=== PATIENT | male | born 1940 | race Caucasian/White ===

== ENCOUNTER 2024-09-15 16:37 | Inpatient (IN) | payer MEDICARE ==
[~2024-09-15] VITALS: Ht 175.3 cm; Wt 104.3 kg
[2024-09-15] VITALS (9 sets, daily range): BP systolic 83–135; BP diastolic 51–66; O2SAT 100
[2024-09-15] MEDS ORDERED: ONDANSETRON HCL/PF 4 MG/2 ML VIAL ONE (17:09)
[2024-09-15] MEDS: IV NS 0.9% 1,000 ML BAG IV ONE ×3 (17:17→19:47)
[2024-09-15] MEDS: ONDANSETRON HCL/PF 4 MG/2 ML VIAL IVP ONE (17:21)
[2024-09-15] MEDS: PANTOPRAZOLE 80 MG in IV NS 0.9% 100 ML IV ONE (17:32)
[2024-09-15 17:38] LABS: INR 1.76 (0.91-1.10); PARTIAL THROMBOPLASTIN TIME 36.8 SEC (24.3-34.3)
[2024-09-15 17:46] LABS: ALANINE AMINOTRANSFERASE 15 U/L (12-78); ALKALINE PHOSPHATASE 74 U/L (46-116); ASPARTATE AMINOTRANSFERASE 36 U/L (15-37); BILIRUBIN,DIRECT 0.3 mg/dL (0.0-0.2); BILIRUBIN,TOTAL 0.9 mg/dL (0.2-1.0); CREATININE 2.7 mg/dL (0.6-1.3); GLUCOSE 206 mg/dL (74-106); LIPASE 52 U/L (16-77); TOTAL PROTEIN, SERUM 6.9 g/dL (6.4-8.2); UREA NITROGEN, BLOOD 61 mg/dL (7-18)
[2024-09-15 17:55] LABS: ALBUMIN 1.5 g/dL (3.4-5.0); CARBON DIOXIDE 18 mmol/L (21-32); CHLORIDE 103 mmol/L (98-107); POTASSIUM 6.1 mmol/L (3.5-5.1); SODIUM SERUM 139 mmol/L (136-145)
[2024-09-15] MEDS: PANTOPRAZOLE 80 MG in IV NS 0.9% 500 ML IV ONE (18:23)
[2024-09-15 18:29] LABS: BASOPHILS # (AUTO) 0.1 K/uL (0.0-0.2); BASOPHILS % (AUTO) 0.4 % (0.0-2.0); EOSINOPHILS % (AUTO) 0.1 % (0.0-6.0); HEMATOCRIT 27 % (39-51); HEMOGLOBIN 8.1 g/dL (13.5-17.5); LYMPHOCYTES # (AUTO) 1.2 K/uL (0.8-4.8); LYMPHOCYTES % (AUTO) 6.3 % (20.0-44.0); MEAN CORPUSCULAR HEMOGLOBIN 25 PG (26.0-33.0); MEAN CORPUSCULAR HGB CONC 30 g/dl (31.0-36.0); MEAN CORPUSCULAR VOLUME 84 fL (80-96); MONOCYTES # (AUTO) 1.3 K/uL (0.1-1.30); MONOCYTES % (AUTO) 6.5 % (2.0-12.0); NEUTROPHILS # (AUTO) 16.8 K/uL (1.8-8.9); NEUTROPHILS % (AUTO) 86.7 % (43.0-81.0); PLATELET COUNT (AUTO) 323 K/uL (150-450); RED BLOOD CELL COUNT(AUTO) 3.25 MIL/uL (4.5-6.0); RED CELL DISTRIBUTION WIDTH 20.1 % (11.5-15.0); WHITE BLOOD COUNT (AUTO) 19.4 K/uL (4.3-11.0)
[2024-09-15] MEDS ORDERED: SODIUM BICARBONATE SYR 100 MEQ in IV D5W 1,000 ML IV ONE (19:00)
[2024-09-15] MEDS ORDERED: Sodium Bicarbonate 100 MEQ in IV D5W 1,000 ML IV PRN (19:00)
[2024-09-15] MEDS ORDERED: ALBUMIN 25% 100 ML IV ONE (19:00)
[2024-09-15] MEDS ORDERED: INSULIN REGULAR, HUMAN 100 UNIT/ML 10 ML VIAL ONE (19:01)
[2024-09-15] MEDS: ALBUMIN 25% 12.5 GM/50 ML BOTTLE IV ONE (19:16)
[2024-09-15] MEDS: INSULIN REGULAR, HUMAN 100 UNIT/ML 10 ML VIAL IV ONE (19:19)
[2024-09-15] MEDS: Sodium Bicarbonate 100 MEQ in IV D5W 1,000 ML IV ONE (19:50)
[2024-09-15] MEDS ORDERED: MORPHINE SULFATE INJ 2 MG/ML DISP.SYRIN IV PRN (20:00)
[2024-09-15] MEDS ORDERED: ACETAMINOPHEN 325 MG TABLET PO PRN (20:00)
[2024-09-15] MEDS ORDERED: hydrALAZINE HCL IV 20 MG VIAL IV PRN (20:00)
[2024-09-15] MEDS ORDERED: ONDANSETRON HCL/PF 4 MG/2 ML VIAL IVP PRN (20:00)
[2024-09-15 20:07] LABS: CALCIUM, SERUM 10.4 mg/dL (8.5-10.1); CREATININE 2.7 mg/dL (0.6-1.3); POTASSIUM 4.9 mmol/L (3.5-5.1)
[2024-09-15 20:10] LABS: HEMOGLOBIN 8.4 g/dL (13.5-17.5)
[2024-09-15 20:12] LABS: ALBUMIN 1.9 g/dL (3.4-5.0); BILIRUBIN,TOTAL 1.1 mg/dL (0.2-1.0); TOTAL PROTEIN, SERUM 6.5 g/dL (6.4-8.2)
[2024-09-15 20:47] LABS: LYMPHOCYTES % (MANUAL) 8 % (16-48); MONOCYTES % (MANUAL) 8 % (0-11.0); NEUTROPHILS % (MANUAL) 84 (42-76); PLATELET ESTIMATE ADEQUATE
[2024-09-15 20:50] LABS: ANISOCYTOSIS 1+
[2024-09-15] MEDS: CEFEPIME 2 GM in IV D5W 100 ML IV SCH (21:05)
[2024-09-15] MEDS: IV NS 0.9% 250 ML IV PRN (21:06)
[2024-09-15] MEDS: VANCOMYCIN 1 GM in IV D5W 250ml IV ONE ×2 (21:43→23:05)
[2024-09-15 22:12] LABS: ABG BASE EXCESS -6.9 mmol/L (-2.0-3.0); ABG PCO2 39.1 mmHg (35.0-48.0); ABG PH 7.302 (7.350-7.450); ABG TOTAL HEMOGLOBIN 7.6 G/dL (13.5-17.5); COHb 0.3 % (0.5-1.5); MetHb 0.4 % (0.0-1.5); O2Hb 99.3 % (94.0-97.0); SITE, ABG LEFT RADIAL
[2024-09-15] MEDS ORDERED: ALBUTEROL FS 2.5 MG/0.5 ML VIAL.NEB NEB PRN (22:30)
[2024-09-15] MEDS: BLOOD SUGAR DIAGNOSTIC 1 EACH STRIP VI SCH (22:33)
[2024-09-15] MEDS: ALBUMIN 25% 100 ML IV ONE (22:36)
[2024-09-15] MEDS: ALBUMIN 25% 25 GM in PREMIX 1 EA IV SCH (22:38)
[2024-09-15] MEDS: IPRATROPIUM/ALBUTEROL INHALER IH SCH (23:57)
[2024-09-16] VITALS (106 sets, daily range): BP systolic 80–157; BP diastolic 39–145; TEMP 96.8–97.7; O2SAT 83–100
[2024-09-16] MEDS: NOREPINEPHRINE 8MG/250ML RTU 250 ML IV ONE (00:12)
[2024-09-16] MEDS: FUROSEMIDE 20 MG/2 ML VIAL IV SCH (00:43)
[2024-09-16] MEDS: NOREPINEPHRINE 8 MG in IV D5W 242 ML IV PRN (01:09)
[2024-09-16 01:52] LABS: LACTIC ACID 7.2 mmol/L (0.4-2.0)
[2024-09-16 02:27] LABS: ABG BASE EXCESS -4.4 mmol/L (-2.0-3.0); ABG OXYGEN SATURATION 98.5 % (94.0-98.0); ABG PCO2 44.7 mmHg (35.0-48.0); ABG PH 7.303 (7.350-7.450); ABG PO2 125.5 mmHg (83.0-108.0); ABG TOTAL HEMOGLOBIN 7.5 G/dL (13.5-17.5); COHb 0.7 % (0.5-1.5); MetHb 0.2 % (0.0-1.5); O2Hb 97.6 % (94.0-97.0); SITE, ABG LEFT RADIAL
[2024-09-16 04:38] LABS: BASOPHILS % (AUTO) 0.1 % (0.0-2.0); HEMATOCRIT 22 % (39-51); LYMPHOCYTES # (AUTO) 3.1 K/uL (0.8-4.8); LYMPHOCYTES % (AUTO) 13.1 % (20.0-44.0); MEAN CORPUSCULAR HEMOGLOBIN 25 PG (26.0-33.0); MEAN CORPUSCULAR HGB CONC 31 g/dl (31.0-36.0); MEAN CORPUSCULAR VOLUME 82 fL (80-96); MONOCYTES # (AUTO) 1.2 K/uL (0.1-1.30); MONOCYTES % (AUTO) 4.8 % (2.0-12.0); NEUTROPHILS # (AUTO) 19.5 K/uL (1.8-8.9); PLATELET COUNT (AUTO) 303 K/uL (150-450); RED CELL DISTRIBUTION WIDTH 19.4 % (11.5-15.0); WHITE BLOOD COUNT (AUTO) 23.9 K/uL (4.3-11.0)
[2024-09-16 04:45] LABS: ALBUMIN 2.2 g/dL (3.4-5.0); BILIRUBIN,TOTAL 1.1 mg/dL (0.2-1.0); CALCIUM, SERUM 9.4 mg/dL (8.5-10.1); CREATININE 2.5 mg/dL (0.6-1.3); MAGNESIUM 1.3 mg/dL (1.8-2.4); POTASSIUM 4.3 mmol/L (3.5-5.1); TOTAL PROTEIN, SERUM 5.9 g/dL (6.4-8.2)
[2024-09-16 05:42] LABS: HEMOGLOBIN 6.9 g/dL (13.5-17.5)
[2024-09-16 06:47] LABS: ANISOCYTOSIS 2+; LYMPHOCYTES % (MANUAL) 18 % (16-48); MONOCYTES % (MANUAL) 3 % (0-11.0); NEUTROPHILS % (MANUAL) 79 (42-76); PLATELET ESTIMATE ADEQUATE
[2024-09-16] MEDS ORDERED: ALBUTEROL FS 2.5 MG/3 ML VIAL.NEB NEB SCH (07:35)
[2024-09-16] MEDS: PANTOPRAZOLE 40 MG VIAL IV SCH (08:13)
[2024-09-16 08:48] LABS: APPEARANCE,URINE CLEAR (CLEAR); BILIRUBIN,URINE NEGATIVE (NEGATIVE); BLOOD, URINE 3+ Ery/uL (NEGATIVE); COLOR,URINE YELLOW (YELLOW); KETONES,URINE NEGATIVE (NEGATIVE); LEUKOCYTE ESTERASE ,URINE 2+ (NEGATIVE); NITRITE, URINE POSITIVE (NEGATIVE); PH,URINE 6.5 (5.0-8.0); PROTEIN,URINE 2+ mg/dl (NEGATIVE); UGLUCOSE NEGATIVE (NEGATIVE); UROBILINOGEN,URINE 0.2 EU/dL (0.2)
[2024-09-16] MEDS: INSULIN REGULAR, HUMAN 100 UNIT/ML 3 ML VIAL SQ PRN (09:33)
[2024-09-16 10:03] LABS: ADD URINE CULTURE YES; BACTERIA,URINE Many /HPF (None Seen); SQUAMOUS EPITHELIAL CELL,UR Moderate /HPF (None Seen); WBC,URINE 81-100 /HPF (0-3)
[2024-09-16] MEDS: Magnesium 1GM/D5W 100ML PREMIX 100 ML IV SCH (10:55)
[2024-09-16] MEDS: THERAHONEY GEL 1.5 OZ TUBE TP SCH (10:55)
[2024-09-16 12:37] LABS: THYROID STIMULATING HORMONE 2.02 uIU/mL (0.358-3.74)
[2024-09-16 12:56] LABS: HEMOGLOBIN 8.5 g/dL (13.5-17.5)
[2024-09-16 13:13] LABS: CREATININE, URINE 17.7 MG/DL (30.0-125.0); URINE TOTAL PROTEIN 66.4 mg/dL (0-11.9)
[2024-09-16] MEDS ORDERED: PANT40TA49 PO (14:06)
[2024-09-16] MEDS ORDERED: METO25TA4 PO (14:06)
[2024-09-16] MEDS ORDERED: APIX5TAB PO (14:07)
[2024-09-16] MEDS ORDERED: METF-440 PO (14:07)
[2024-09-16] MEDS ORDERED: BUME1TAB8 PO (14:07)
[2024-09-16] MEDS ORDERED: ATOR20TA PO (14:07)
[2024-09-16] MEDS ORDERED: AMLO-213 PO (14:07)
[2024-09-16] MEDS: ALBUTEROL FS 2.5 MG/3 ML VIAL.NEB NEB SCH (14:28)
[2024-09-16 14:30] LABS: ABG BASE EXCESS 1.3 mmol/L (-2.0-3.0); ABG OXYGEN SATURATION 99.1 % (94.0-98.0); ABG PCO2 51.6 mmHg (35.0-48.0); ABG PH 7.343 (7.350-7.450); ABG PO2 155.5 mmHg (83.0-108.0); ABG TOTAL HEMOGLOBIN 8.4 G/dL (13.5-17.5); COHb 0.6 % (0.5-1.5); MetHb 0.4 % (0.0-1.5); O2Hb 98.1 % (94.0-97.0); SITE, ABG LEFT RADIAL
[2024-09-16] MEDS: IPRATROPIUM NEB FS 0.5 MG/2.5 ML AMPUL.NEB NEB SCH (14:30)
[2024-09-16] MEDS ORDERED: CRAN425C6 PO (15:43)
[2024-09-16] MEDS ORDERED: ACET-73 PO (15:43)
[2024-09-16] MEDS ORDERED: DIPH25CA83 PO (15:43)
[2024-09-16] MEDS ORDERED: ASPI-1169 PO (15:43)
[2024-09-16] MEDS ORDERED: DOCU-141 PO (15:43)
[2024-09-16] MEDS ORDERED: POLY17PO4 PO (15:43)
[2024-09-16] MEDS: CLOTRIMAZOLE/BETAMETASONE DIPROPIONATE 15 GM TUBE TP SCH (20:33)
[2024-09-16] MEDS: *INSULIN REGULAR(HUMULIN R)HUM 100 UNIT/ML VIAL SQ PRN (21:39)
[2024-09-17] VITALS (74 sets, daily range): BP systolic 75–147; BP diastolic 37–130; TEMP 96.8–97.2; O2SAT 95–100
[2024-09-17 05:05] LABS: BASOPHILS % (AUTO) 0.2 % (0.0-2.0); EOSINOPHILS # (AUTO) 0.1 K/uL (0.0-0.7); EOSINOPHILS % (AUTO) 1.3 % (0.0-6.0); HEMATOCRIT 23 % (39-51); HEMOGLOBIN 7.6 g/dL (13.5-17.5); LYMPHOCYTES # (AUTO) 1.8 K/uL (0.8-4.8); LYMPHOCYTES % (AUTO) 19.8 % (20.0-44.0); MEAN CORPUSCULAR HEMOGLOBIN 27 PG (26.0-33.0); MEAN CORPUSCULAR HGB CONC 33 g/dl (31.0-36.0); MEAN CORPUSCULAR VOLUME 83 fL (80-96); MONOCYTES # (AUTO) 0.9 K/uL (0.1-1.30); MONOCYTES % (AUTO) 9.7 % (2.0-12.0); NEUTROPHILS # (AUTO) 6.4 K/uL (1.8-8.9); PLATELET COUNT (AUTO) 257 K/uL (150-450); RED BLOOD CELL COUNT(AUTO) 2.82 MIL/uL (4.5-6.0); RED CELL DISTRIBUTION WIDTH 19.4 % (11.5-15.0); WHITE BLOOD COUNT (AUTO) 9.3 K/uL (4.3-11.0)
[2024-09-17 05:21] LABS: ALBUMIN 2.3 g/dL (3.4-5.0); BILIRUBIN,TOTAL 0.8 mg/dL (0.2-1.0); CALCIUM, SERUM 10.2 mg/dL (8.5-10.1); CREATININE 2.2 mg/dL (0.6-1.3); MAGNESIUM 1.9 mg/dL (1.8-2.4); PHOSPHORUS 3.8 mg/dL (2.5-4.9); POTASSIUM 3.6 mmol/L (3.5-5.1); TOTAL PROTEIN, SERUM 5.9 g/dL (6.4-8.2)
[2024-09-17] MEDS: VITAMINS A AND D 56.7 GM TUBE TP SCH (08:10)
[2024-09-17] MEDS: IV D5 LR 1,000 ML IV PRN (08:58)
[2024-09-17] MEDS: VANCOMYCIN 1 GM in IV D5W 250ml IV SCH (12:38)
[2024-09-17 12:39] LABS: HEMOGLOBIN 7.8 g/dL (13.5-17.5)
[2024-09-17 20:27] LABS: HEMOGLOBIN 7.7 g/dL (13.5-17.5)
[2024-09-18] VITALS (34 sets, daily range): BP systolic 92–159; BP diastolic 22–139; TEMP 97.5–97.9; O2SAT 95–100
[2024-09-18 04:32] LABS: HEMOGLOBIN 7.3 g/dL (13.5-17.5)
[2024-09-18 04:49] LABS: CALCIUM, SERUM 9.7 mg/dL (8.5-10.1); CREATININE 1.8 mg/dL (0.6-1.3); POTASSIUM 3.5 mmol/L (3.5-5.1)
[2024-09-18] MEDS: CEFEPIME 2 GM in IV D5W 100 ML IV SCH (07:40)
[2024-09-18 08:10] LABS: PTH, INTACT 43 pg/mL (15-65)
[2024-09-18 08:10] LABS: FOLIC ACID 5.8 ng/mL (>3.0)
[2024-09-18] MEDS ORDERED: AMLODIPINE BESYLATE 10 MG TABLET PO SCH (09:00)
[2024-09-18 13:28] LABS: HEMOGLOBIN 8.4 g/dL (13.5-17.5)
[2024-09-18 14:23] LABS: HIV-1 p24 ANTIGEN NON REACTIVE (NONREACTIVE); HIV-1/2 ANTIBODY NON REACTIVE (NONREACTIVE)
[2024-09-18 20:08] LABS: HEMOGLOBIN 8.7 g/dL (13.5-17.5)
[2024-09-19] VITALS (14 sets, daily range): BP systolic 96–138; BP diastolic 67–95; TEMP 97–97.5; O2SAT 93–100
[2024-09-19 03:45] LABS: HEMOGLOBIN 8.8 g/dL (13.5-17.5)
[2024-09-19 04:01] LABS: CALCIUM, SERUM 9.9 mg/dL (8.5-10.1); CREATININE 1.9 mg/dL (0.6-1.3); POTASSIUM 2.9 mmol/L (3.5-5.1)
[2024-09-19 04:09] LABS: HEPATITIS B CORE AB, TOTAL Positive (Negative); HEPATITIS B SURFACE AB (QUAL) Reactive (.)
[2024-09-19] MEDS: POTASSIUM CL. PREMIX PERIPHER. 50 ML IV SCH (09:15)
[2024-09-19 12:38] LABS: HEMOGLOBIN 8.7 g/dL (13.5-17.5)
[2024-09-19 21:43] LABS: HEMOGLOBIN 9.2 g/dL (13.5-17.5)
[2024-09-20] VITALS (12 sets, daily range): BP systolic 105–122; BP diastolic 68–89; TEMP 96.8–97.7; O2SAT 95–100
[2024-09-20 07:50] LABS: CALCIUM, SERUM 9.9 mg/dL (8.5-10.1); CREATININE 1.7 mg/dL (0.6-1.3); POTASSIUM 3.2 mmol/L (3.5-5.1)
[2024-09-20] MEDS: POTASSIUM CL. PREMIX PERIPHER. 50 ML IV SCH (10:06)
[2024-09-20] MEDS: DEXTROSE 50%-WATER 50 ML DISP.SYRIN IV PRN (10:43)
[2024-09-20] MEDS ORDERED: VANCOMYCIN HCL 1.25 GM in IV D5W 250 ML IV SCH (11:00)
[2024-09-20] MEDS: VANCOMYCIN 1 GM in IV D5W 250ml IV SCH (22:57)
[2024-09-21] VITALS (12 sets, daily range): BP systolic 98–139; BP diastolic 51–73; TEMP 97.3–98.1; O2SAT 97–100
[2024-09-21 07:31] LABS: CALCIUM, SERUM 9.9 mg/dL (8.5-10.1); CREATININE 1.7 mg/dL (0.6-1.3); POTASSIUM 4.2 mmol/L (3.5-5.1)
[2024-09-21] MEDS: FINASTERIDE (5 MG) 5 MG TABLET PO SCH (08:42)
[2024-09-21 15:06] LABS: VITAMIN B1 THIAMINE,WB 79.1 nmol/L (66.5-200.0)
[2024-09-21] MEDS: APIXABAN 5 MG TABLET PO SCH (16:47)
[2024-09-21] MEDS: TAMSULOSIN 0.4 MG CAP.SR.24H PO SCH (21:17)
[2024-09-22] VITALS (9 sets, daily range): BP systolic 96–102; BP diastolic 55–77; TEMP 97.3–98.1; O2SAT 97–100
[2024-09-22 06:43] LABS: BASOPHILS # (AUTO) 0.1 K/uL (0.0-0.2); BASOPHILS % (AUTO) 0.7 % (0.0-2.0); EOSINOPHILS # (AUTO) 0.2 K/uL (0.0-0.7); EOSINOPHILS % (AUTO) 2.8 % (0.0-6.0); HEMATOCRIT 25 % (39-51); HEMOGLOBIN 8.1 g/dL (13.5-17.5); LYMPHOCYTES # (AUTO) 2.3 K/uL (0.8-4.8); LYMPHOCYTES % (AUTO) 27.2 % (20.0-44.0); MEAN CORPUSCULAR HEMOGLOBIN 27 PG (26.0-33.0); MEAN CORPUSCULAR HGB CONC 32 g/dl (31.0-36.0); MEAN CORPUSCULAR VOLUME 86 fL (80-96); MONOCYTES # (AUTO) 0.8 K/uL (0.1-1.30); MONOCYTES % (AUTO) 9.1 % (2.0-12.0); NEUTROPHILS # (AUTO) 5.1 K/uL (1.8-8.9); NEUTROPHILS % (AUTO) 60.2 % (43.0-81.0); PLATELET COUNT (AUTO) 241 K/uL (150-450); RED BLOOD CELL COUNT(AUTO) 2.97 MIL/uL (4.5-6.0); RED CELL DISTRIBUTION WIDTH 21.8 % (11.5-15.0); WHITE BLOOD COUNT (AUTO) 8.5 K/uL (4.3-11.0)
[2024-09-22 06:46] LABS: ALBUMIN 1.5 g/dL (3.4-5.0); BILIRUBIN,TOTAL 0.8 mg/dL (0.2-1.0); CALCIUM, SERUM 9.9 mg/dL (8.5-10.1); CREATININE 1.7 mg/dL (0.6-1.3); MAGNESIUM 1.5 mg/dL (1.8-2.4); PHOSPHORUS 1.7 mg/dL (2.5-4.9); POTASSIUM 3.9 mmol/L (3.5-5.1); TOTAL PROTEIN, SERUM 5.4 g/dL (6.4-8.2)
[2024-09-22] MEDS: PANTOPRAZOLE 40 MG TABLET.DR PO SCH (10:23)
[2024-09-22] MEDS: K PHOS NEUTRAL 250 MG TABLET PO ONE (17:36)
[2024-09-22] MEDS: CEFAZOLIN 1 GM in IV D5W 50 ML IV SCH (21:09)
[2024-09-22] MEDS: MAGNESIUM OXIDE 400 MG TABLET PO ONE (21:10)
[2024-09-23] VITALS (12 sets, daily range): BP systolic 92–104; BP diastolic 55–84; TEMP 97.3–98.9; O2SAT 94–100
[2024-09-23 06:52] LABS: CALCIUM, SERUM 10.2 mg/dL (8.5-10.1); CREATININE 1.6 mg/dL (0.6-1.3); MAGNESIUM 1.7 mg/dL (1.8-2.4); PHOSPHORUS 1.9 mg/dL (2.5-4.9); POTASSIUM 3.5 mmol/L (3.5-5.1)
[2024-09-23] MEDS: Magnesium 1GM/D5W 100ML PREMIX 100 ML IV SCH (10:42)
[2024-09-23] MEDS: NEUTRA PHOS 1 POWD.PACKET PO SCH (11:06)
[2024-09-23 19:41] LABS: ABG OXYGEN SATURATION 98.2 % (94.0-98.0); ABG PCO2 39.8 mmHg (35.0-48.0); ABG PH 7.394 (7.350-7.450); ABG PO2 123.6 mmHg (83.0-108.0); ABG TOTAL HEMOGLOBIN 8.6 G/dL (13.5-17.5); COHb 0.1 % (0.5-1.5); MetHb 0.3 % (0.0-1.5); O2Hb 97.8 % (94.0-97.0); SITE, ABG RIGHT RADIAL
[2024-09-24] VITALS (12 sets, daily range): BP systolic 125–151; BP diastolic 63–106; TEMP 97.2–98.8; O2SAT 6–100
[2024-09-24 07:19] LABS: BASOPHILS # (AUTO) 0.1 K/uL (0.0-0.2); BASOPHILS % (AUTO) 0.8 % (0.0-2.0); EOSINOPHILS # (AUTO) 0.2 K/uL (0.0-0.7); EOSINOPHILS % (AUTO) 1.9 % (0.0-6.0); HEMATOCRIT 28 % (39-51); HEMOGLOBIN 8.8 g/dL (13.5-17.5); LYMPHOCYTES # (AUTO) 1.9 K/uL (0.8-4.8); LYMPHOCYTES % (AUTO) 21.9 % (20.0-44.0); MEAN CORPUSCULAR HEMOGLOBIN 27 PG (26.0-33.0); MEAN CORPUSCULAR HGB CONC 32 g/dl (31.0-36.0); MEAN CORPUSCULAR VOLUME 87 fL (80-96); MONOCYTES # (AUTO) 0.8 K/uL (0.1-1.30); MONOCYTES % (AUTO) 9.1 % (2.0-12.0); NEUTROPHILS # (AUTO) 5.7 K/uL (1.8-8.9); NEUTROPHILS % (AUTO) 66.3 % (43.0-81.0); PLATELET COUNT (AUTO) 251 K/uL (150-450); RED BLOOD CELL COUNT(AUTO) 3.21 MIL/uL (4.5-6.0); RED CELL DISTRIBUTION WIDTH 22.1 % (11.5-15.0); WHITE BLOOD COUNT (AUTO) 8.5 K/uL (4.3-11.0)
[2024-09-24 07:51] LABS: ALBUMIN 1.6 g/dL (3.4-5.0); BILIRUBIN,TOTAL 0.5 mg/dL (0.2-1.0); CALCIUM, SERUM 10.5 mg/dL (8.5-10.1); CREATININE 1.9 mg/dL (0.6-1.3); MAGNESIUM 1.7 mg/dL (1.8-2.4); PHOSPHORUS 2.5 mg/dL (2.5-4.9); POTASSIUM 3.5 mmol/L (3.5-5.1); TOTAL PROTEIN, SERUM 5.9 g/dL (6.4-8.2)
[2024-09-24] MEDS: Magnesium 1GM/D5W 100ML PREMIX 100 ML IV SCH (10:59)
[2024-09-24] MEDS ORDERED: INSULIN REGULAR, HUMAN 100 UNIT/ML 3 ML VIAL SQ PRN (16:30)
[2024-09-24] MEDS ORDERED: DEXTROSE 50%-WATER 50 ML DISP.SYRIN IV PRN ×2 (16:30→17:00)
[2024-09-24] MEDS: BLOOD SUGAR DIAGNOSTIC 1 EACH STRIP IN SCH (17:08)
[2024-09-24] MEDS ORDERED: BLOOD SUGAR DIAGNOSTIC 1 EACH STRIP IN SCH (18:00)
[2024-09-25] VITALS (8 sets, daily range): BP systolic 92–119; BP diastolic 61–78; TEMP 97.6–97.9; O2SAT 94–100
[2024-09-25] MEDS: INSULIN REGULAR, HUMAN 100 UNIT/ML 3 ML VIAL SQ PRN (00:03)
[2024-09-25] MEDS: IV D5/ 0.9% NACL 1,000 ML IV PRN (05:20)
[2024-09-25 06:56] LABS: BASOPHILS % (AUTO) 0.6 % (0.0-2.0); EOSINOPHILS # (AUTO) 0.1 K/uL (0.0-0.7); EOSINOPHILS % (AUTO) 1.3 % (0.0-6.0); HEMATOCRIT 23 % (39-51); HEMOGLOBIN 7.2 g/dL (13.5-17.5); LYMPHOCYTES # (AUTO) 1.7 K/uL (0.8-4.8); LYMPHOCYTES % (AUTO) 23.7 % (20.0-44.0); MEAN CORPUSCULAR HEMOGLOBIN 27 PG (26.0-33.0); MEAN CORPUSCULAR HGB CONC 32 g/dl (31.0-36.0); MEAN CORPUSCULAR VOLUME 87 fL (80-96); MONOCYTES # (AUTO) 0.8 K/uL (0.1-1.30); MONOCYTES % (AUTO) 10.7 % (2.0-12.0); NEUTROPHILS # (AUTO) 4.6 K/uL (1.8-8.9); NEUTROPHILS % (AUTO) 63.7 % (43.0-81.0); PLATELET COUNT (AUTO) 234 K/uL (150-450); RED BLOOD CELL COUNT(AUTO) 2.64 MIL/uL (4.5-6.0); RED CELL DISTRIBUTION WIDTH 22.9 % (11.5-15.0); WHITE BLOOD COUNT (AUTO) 7.3 K/uL (4.3-11.0)
[2024-09-25 07:30] LABS: ALKALINE PHOSPHATASE 79 U/L (46-116); ASPARTATE AMINOTRANSFERASE 15 U/L (15-37); BILIRUBIN,TOTAL 0.4 mg/dL (0.2-1.0); CALCIUM, SERUM 9.9 mg/dL (8.5-10.1); CARBON DIOXIDE 26 mmol/L (21-32); CHLORIDE 115 mmol/L (98-107); CREATININE 1.8 mg/dL (0.6-1.3); GLUCOSE 153 mg/dL (74-106); MAGNESIUM 1.6 mg/dL (1.8-2.4); PHOSPHORUS 2.7 mg/dL (2.5-4.9); POTASSIUM 3.4 mmol/L (3.5-5.1); SODIUM SERUM 147 mmol/L (136-145); UREA NITROGEN, BLOOD 28 mg/dL (7-18)
[2024-09-25 08:37] LABS: ALANINE AMINOTRANSFERASE 10 U/L (12-78)
[2024-09-25 09:20] LABS: ALBUMIN 1.4 g/dL (3.4-5.0)
[2024-09-25] MEDS: GLUCERNA 1.2 1,000 ML BOTTLE GT PRN (11:01)
[2024-09-26 07:08] LABS: *SPE A/G RATIO 0.8 (0.7-1.7); *SPE ALBUMIN 2.4 g/dL (2.9-4.4); *SPE ALPHA-1-GLOBULIN 0.4 g/dL (0.0-0.4); *SPE ALPHA-2-GLOBULIN 0.4 g/dL (0.4-1.0); *SPE BETA GLOBULIN 0.7 g/dL (0.7-1.3); *SPE GLOBULIN, TOTAL 2.9 g/dL (2.2-3.9); *SPE M-SPIKE Not Observed g/dL (Not Observed); *SPE PROTEIN TOTAL 5.3 g/dL (6.0-8.5); *SPEGAMMA GLOBULIN 1.4 g/dL (0.4-1.8)
== END 2024-09-25 18:13 | DRG 871 ==
LOC: ER 16:41 → ICU 19:53 → TELE1 09-18 17:53 → MEDSG1 09-19 13:13
PROVIDERS: ADMIT Internal Medicine
PROC: 30233N1 Transfusion of Nonautologous Red Blood Cells into Peripheral Vein, Percutaneous Approach (ICD-10-PCS; principal; 2024-09-15)
PROC: 0DH63UZ Insertion of Feeding Device into Stomach, Percutaneous Approach (ICD-10-PCS; 2024-09-24)
DX: A41.9 Sepsis, unspecified organism (principal); E43 Unspecified severe protein-calorie malnutrition; L89.514 Pressure ulcer of right ankle, stage 4; L89.153 Pressure ulcer of sacral region, stage 3; J96.01 Acute respiratory failure with hypoxia; N17.0 Acute kidney failure with tubular necrosis; R65.21 Severe sepsis with septic shock; J69.0 Pneumonitis due to inhalation of food and vomit; G93.41 Metabolic encephalopathy; K92.2 Gastrointestinal hemorrhage, unspecified; D62 Acute posthemorrhagic anemia; D68.59 Other primary thrombophilia; I48.20 Chronic atrial fibrillation, unspecified; E87.4 Mixed disorder of acid-base balance; N13.6 Pyonephrosis; L03.115 Cellulitis of right lower limb; Z16.24 Resistance to multiple antibiotics; J98.11 Atelectasis; E11.65 Type 2 diabetes mellitus with hyperglycemia; E87.5 Hyperkalemia; E88.09 Other disorders of plasma-protein metabolism, not elsewhere classified; I25.10 Atherosclerotic heart disease of native coronary artery without angina pectoris; L85.3 Xerosis cutis; N18.9 Chronic kidney disease, unspecified; R13.10 Dysphagia, unspecified; E78.5 Hyperlipidemia, unspecified; E83.52 Hypercalcemia; E11.22 Type 2 diabetes mellitus with diabetic chronic kidney disease; B96.20 Unspecified Escherichia coli [E. coli] as the cause of diseases classified elsewhere; E66.01 Morbid (severe) obesity due to excess calories; L22 Diaper dermatitis; E83.9 Disorder of mineral metabolism, unspecified; B95.61 Methicillin susceptible Staphylococcus aureus infection as the cause of diseases classified elsewhere; Z20.822 Contact with and (suspected) exposure to COVID-19; I12.9 Hypertensive chronic kidney disease with stage 1 through stage 4 chronic kidney disease, or unspecified chronic kidney disease; Z74.09 Other reduced mobility; R74.01 Elevation of levels of liver transaminase levels; N32.0 Bladder-neck obstruction; N21.0 Calculus in bladder; L89.142 Pressure ulcer of left lower back, stage 2; L89.132 Pressure ulcer of right lower back, stage 2; L98.8 Other specified disorders of the skin and subcutaneous tissue; L89.320 Pressure ulcer of left buttock, unstageable; G30.9 Alzheimer's disease, unspecified; F02.80 Dementia in other diseases classified elsewhere, unspecified severity, without behavioral disturbance, psychotic disturbance, mood disturbance, and anxiety; F09 Unspecified mental disorder due to known physiological condition; Z68.34 Body mass index [BMI] 34.0-34.9, adult; N40.1 Benign prostatic hyperplasia with lower urinary tract symptoms; N50.89 Other specified disorders of the male genital organs
CPT/HCPCS: 36415; 36600; 43246; 70450-TC; 71045-TC; 76770-TC; 80048-TC; 80053-TC; 80076-TC; 80202-TC; 81001; 82550-TC; 82570-TC; 82607-TC; 82803-TC; 82962-TC; 83605-TC; 83690-TC; 83735-TC; 83921; 83970; 84100-TC; 84153-TC; 84155; 84165; 84300-TC; 84425; 84443-TC; 84484-TC; 85025-TC; 85027-TC; 85730-TC; 86704; 86706; 86803; 86850-TC; 87040-TC; 87081-TC; 87086-TC; 87186-TC; 87340; 87806; 92526; 92611-TC; 93307-TC; 93970-TC; 94761-TC; 94762-TC; 94799-TC; 97530-TC; 97535-TC; A4216; A4223; A6253; A6403; G0378; J0690; J0692; J1815; J1938; J2405; J2470; J2704; J3370; J3475; J3480; J3490; J7030; J7040; J7042; J7050; J7060; J7070; P9016; P9047